=== PATIENT | female | born 1970 | race Caucasian/White ===

== ENCOUNTER → 2023-11-17 15:40 | Outpatient (REF) | payer OTHER, SELFPAY | LOC: HWWDC 15:40 | PROVIDERS: ATTENDING PHYSICIAN Obstetrics & Gynecology; REFERRING PHYSICIAN Obstetrics & Gynecology | DX: Z12.31 Encounter for screening mammogram for malignant neoplasm of breast (principal) | CPT/HCPCS: 77063; 77067 ==

== ENCOUNTER → 2024-09-15 08:32 | Outpatient (REF) | payer OTHER, SELFPAY | LOC: HWRAD 08:32 | PROVIDERS: ATTENDING PHYSICIAN Obstetrics & Gynecology | DX: N95.0 Postmenopausal bleeding (principal) | CPT/HCPCS: 76830; 76856 ==

== ENCOUNTER → 2024-12-15 14:06 | Outpatient (REF) | payer OTHER, SELFPAY | LOC: HWRAD 14:06 | PROVIDERS: ATTENDING PHYSICIAN Nurse Practitioner | DX: N95.1 Menopausal and female climacteric states (principal); G89.29 Other chronic pain; M54.41 Lumbago with sciatica, right side | CPT/HCPCS: 72110 ==

== ENCOUNTER → 2024-12-20 07:03 | Outpatient (REF) | payer OTHER, SELFPAY | LOC: HWWDC 07:03 | PROVIDERS: ATTENDING PHYSICIAN Obstetrics & Gynecology; FAMILY PHYSICIAN Nurse Practitioner | DX: Z12.31 Encounter for screening mammogram for malignant neoplasm of breast (principal) | CPT/HCPCS: 77063; 77067 ==